=== PATIENT | female | born 1985 | race Caucasian/White ===

== ENCOUNTER 2023-07-27 12:16 | Emergency (ER) | payer SELFPAY ==
[~2023-07-27] VITALS: Ht 167.6 cm; Wt 77.1 kg
[2023-07-27 12:20] VITALS: BP 138/90; PULSE 86; RESP 20; TEMP 97.7; O2SAT 100
[2023-07-27] MEDS ORDERED: PHENERGAN ONE (12:58)
[2023-07-27] MEDS ORDERED: TORADOL ONE (12:58)
[2023-07-27] MEDS ORDERED: DECADRON ONE (12:58)
[2023-07-27] MEDS: PHENERGAN IM STA (13:04)
[2023-07-27] MEDS: DECADRON IM ONE (13:05)
[2023-07-27] MEDS: TORADOL IM ONE (13:05)
[2023-07-27 13:13] VITALS: BP 126/74; PULSE 61; RESP 18; O2SAT 98
== END 2023-07-27 13:13 | disposition home or self-care (01) ==
LOC: ER 12:16
DX: B34.9 Viral infection, unspecified (principal); G89.29 Other chronic pain; F12.90 Cannabis use, unspecified, uncomplicated; Z88.0 Allergy status to penicillin; Z88.1 Allergy status to other antibiotic agents; Z90.710 Acquired absence of both cervix and uterus
CPT/HCPCS: 99284; 96372 ×3; J1100; J1885; J2550